=== PATIENT | female | born 1980 | race Caucasian/White ===

== ENCOUNTER 2017-08-31 17:13 | Emergency (ER) | payer OTHER ==
--- NOTE | 2017-08-31 18:07 | RAD ---
LEFT ANKLE THREE VIEW 08/31/17 HISTORY: Pain. COMPARISON: None. FINDINGS: There is a small, what appears to be a fracture fragment along the medial margin of the lateral malle olus near the lateral shoulder of the ankle mortise. Remainder of the ankle is intact. Mild edema. IMPRESSION: Small fracture at the medial margin of the lateral malleolus may represent an avulsion fracture of th e either the talus or the distal fibula. POS: HOME
--- NOTE | 2017-08-31 19:08 | ULT ---
LEFT LOWER EXTREMITY VENOUS DUPLEX ULTRASOUND INCLUDING COLOR AND SPECTRAL DOPPLER IMAGIN08/31/17 HISTORY: 37-year-old female with left ankle pain and some skin discoloration. Examination performed from groin to ankle including visualized greater saphenous, common femoral, sup erficial femoral, profunda femoral, popliteal, trifurcation, and posterior tibial vein regions. Phasi c flow noted at all levels. Normal compressibility and normal augmentation. No intraluminal thrombus. IMPRESSION: No evidence of deep venous thrombosis. POS: [facility]
== END 2017-08-31 19:21 | disposition home or self-care (01) ==
LOC: SCSER 17:13
DX: S82.62XA Displaced fracture of lateral malleolus of left fibula, initial encounter for closed fracture (principal); X58.XXXA Exposure to other specified factors, initial encounter